=== PATIENT | male | born 1960 | race Hispanic/Latino ===

== ENCOUNTER 2022-12-02 11:22 | Outpatient (CLI) | payer MEDICARE | END 2022-12-02 11:23 | disposition home or self-care (01) | LOC: MADRAD 11:22 | PROVIDERS: ATTEND Chiropractor | DX: M99.03 Segmental and somatic dysfunction of lumbar region (principal); M47.896 Other spondylosis, lumbar region; M99.04 Segmental and somatic dysfunction of sacral region; M99.02 Segmental and somatic dysfunction of thoracic region | CPT/HCPCS: 72072; 72110 ==